=== PATIENT | female | born 1940 | race Caucasian/White ===

== ENCOUNTER 2020-01-09 22:43 | Emergency (ER) | payer OTHER, MEDICAID ==
[~2020-01-09] VITALS: Ht 162.6 cm; Wt 82.0 kg
[2020-01-09] MEDS ORDERED: ONDANSETRON HCL 4MG/2ML INJ IV STA (23:06)
[2020-01-09] MEDS ORDERED: LABETALOL HCL 20MG/4ML CARPUJECT IV ONE (23:15)
[2020-01-09] MEDS ORDERED: LABETALOL 5MG/ML SYR 20 MG/4 ML SYRINGE IV ONE (23:30)
[2020-01-10] LABS: BASOPHILS % 0.9 % (0.0-2.0); EOSINOPHILS % 6.3 % (0.0-5.0); HEMATOCRIT. 40.1 % (36.0-48.0); HEMOGLOBIN. 13.3 g/dL (12.0-16.0); MEAN CORPUSCULAR HEMOGLOBIN 30.1 pg (28.0-32.0); MEAN CORPUSCULAR VOLUME 90.4 fL (81.0-99.0); MONOCYTES % 8.6 % (2.0-8.0); NEUTROPHILS % 49.2 % (40.0-76.0); PLATELET 229 x1000/uL (130-400); RED BLOOD CELL COUNT 4.44 mill/uL (4.2-5.4); RED CELL DISTRIBUTION WIDTH 13.5 % (11.6-14.6)
[2020-01-10 00:05] LABS: CHLORIDE 106 mEq/L (98-107)
[2020-01-10 00:09] LABS: ETHANOL BLOOD < 10 mg/dL
[2020-01-10 00:47] LABS: INR 1.4; PARTIAL THROMBOPLASTIN TIME 50.6 sec (23.4-31.0); PROTHROMBIN TIME 14.6 sec (9.6-11.0)
[2020-01-10 04:08] VITALS: BP 129/68
== END 2020-01-10 04:26 | disposition short-term general hospital (02) ==
LOC: ER 22:43
DX: R79.89 Other specified abnormal findings of blood chemistry (principal); I16.1 Hypertensive emergency; R07.89 Other chest pain; R53.1 Weakness; E78.00 Pure hypercholesterolemia, unspecified
CPT/HCPCS: 36415; 70450; 71045; 80053; 80320; 84484; 85025; 85610; 85730; 86850; 86900; 86901; 93005; 96374; 96375; 99285; J2405; J3490; G0480

== ENCOUNTER 2021-03-03 13:41 | Emergency (ER) | payer OTHER, MEDICAID ==
[~2021-03-03] VITALS: Ht 167.6 cm; Wt 86.0 kg
[2021-03-03] MEDS ORDERED: ROSU20TA2 PO (14:01)
[2021-03-03] MEDS ORDERED: LOSA100T3 PO (14:01)
[2021-03-03] MEDS ORDERED: DABI150C PO (14:01)
[2021-03-03] MEDS ORDERED: PROP10TA10 PO (14:01)
[2021-03-03 16:04] LABS: BASOPHILS % 0.6 % (0.0-2.0); HEMATOCRIT. 35.7 % (36.0-48.0); LYMPHOCYTES % 24.8 % (20.0-50.0); MEAN CORPUSCULAR HEMOGLOBIN 29.9 pg (28.0-32.0); MEAN CORPUSCULAR VOLUME 89.3 fL (81.0-99.0); MEAN PLATELET VOLUME 8.8 fl (7.4-10.4); MONOCYTES % 10.1 % (2.0-8.0); NEUTROPHILS % 61.5 % (40.0-76.0); PLATELET 200 x1000/uL (130-400)
[2021-03-03 16:08] LABS: CHLORIDE 106 mEq/L (98-107)
[2021-03-03 16:13] LABS: INR 1.2; PROTHROMBIN TIME 12.9 sec (9.6-11.0)
[2021-03-03 16:14] LABS: CLARITY URINE CLEAR (CLEAR); COLOR URINE YELLOW (YELLOW); KETONES URINE NEGATIVE (NEGATIVE); LEUKOCYTE ESTERASE URINE NEGATIVE (NEGATIVE); NITRITE URINE NEGATIVE (NEGATIVE); OCCULT BLOOD URINE 1+ (NEGATIVE); PROTEIN URINE NEGATIVE (NEGATIVE); SPECIFIC GRAVITY URINE 1.014 (1.005-1.030)
[2021-03-03] MEDS ORDERED: NITROGLYCERIN 0.4MG TABLET SL SL PRN (16:30)
[2021-03-03] MEDS ORDERED: FUROSEMIDE 40MG/4ML VIAL IVP ONE (18:00)
[2021-03-03 20:10] VITALS: BP 168/63
== END 2021-03-03 20:30 | disposition short-term general hospital (02) ==
LOC: ER 13:41
DX: R07.89 Other chest pain (principal); I10 Essential (primary) hypertension; E78.00 Pure hypercholesterolemia, unspecified; I48.91 Unspecified atrial fibrillation; Z88.6 Allergy status to analgesic agent; Z98.890 Other specified postprocedural states; Z90.49 Acquired absence of other specified parts of digestive tract
CPT/HCPCS: 36415; 71045; 80053; 81003; 83880; 84443; 84484; 85025; 85379; 85610; 93005; 96374; 99285; J1940